=== PATIENT | male | born 1975 | race Caucasian/White ===

== ENCOUNTER 2022-02-16 17:47 | Emergency (ER) | payer BC ==
[2022-02-16 19:34] LABS: ALT (SGPT) 15 U/L (8-55); AST (SGOT) 13 U/L (5-34); Albumin 4.5 g/dL (3.5-5.0); Alkaline Phosphatase 44 U/L (40-110); Anion Gap 14 mmol/L (10-20); BUN (Urea Nitrogen) 12 mg/dL (8.9-20.6); Bilirubin, Total 0.4 mg/dL (0.2-1.2); Calc. Creatinine Clearance 0 mL/min (70-130); Calcium 9.3 mg/dL (7.8-10.44); Carbon Dioxide 26 mmol/L (22-29); Chloride 105 mmol/L (98-107); Estimated GFR 99; Globulin 2.6 g/dL (2.4-3.5); Glucose 111 mg/dL (70-105); Protein, Total 7.1 g/dL (6.0-8.3); Sodium 141 mmol/L (136-145)
[2022-02-16 19:38] LABS: Bilirubin Neg (Negative); Blood, Urine Negative (Negative); Clarity Clear (Clear); Glucose, Urine (Dipstick) Normal (Negative); Ketone, Urine Negative (Negative); Leukocyte Negative (Negative); Nitrite Negative (Negative); Protein, Urine (Dipstick) Negative (Neg-Trace); Specific Gravity, Urine 1.015 (1.002-1.036); Urobilinogen Normal mg/dL (Less than 2)
[2022-02-16 19:52] LABS: #Monocytes 0.6 10x3/uL (0.0-1.1); #Neutrophils 9.4 10x3/uL (1.5-8.4); %Basophils 0.3 % (0.0-2.0); %Eosinophils 0.2 % (0.0-6.0); %Lymphocytes 13.8 % (18.0-47.0); %Monocytes 5.1 % (0.0-10.0); %Neutrophils 80.3 % (40.0-75.0); Hemoglobin 16.2 g/dL (13.5-17.5); Mean Corpuscular HGB CONC 35.6 g/dL (32.0-36.0); Mean Platelet Volume 10.1 fl (7.4-10.4); Platelet Count 241 10x3/uL (150-450); RBC Distribution Width 12.3 % (11.5-14.5); Red Blood Cell (RBC) Count 5.23 10x6/uL (4.32-5.72); White Blood Cell (WBC) Count 11.7 10x3/uL (3.5-10.5)
[2022-02-16 20:31] LABS: SARS-CoV-2 NAA Rapid Test DETECTED (NotDetected)
== END 2022-02-16 20:07 | disposition home or self-care (01) ==
LOC: CSHERS 17:47
DX: U07.1 COVID-19 (principal)
CPT/HCPCS: 36415; 71045; 80053; 81003; 85025; 93005

== ENCOUNTER 2023-02-09 09:22 | Outpatient (CLI) | payer OTHER | END 2023-02-09 09:23 | disposition home or self-care (01) | LOC: CSHCP 09:22 | PROVIDERS: ATTEND Chiropractor | DX: R06.02 Shortness of breath (principal) | CPT/HCPCS: 94010; 94760 ==